=== PATIENT | male | born 1955 | race Caucasian/White ===

== ENCOUNTER → 2021-10-01 | Day surgery (SDC) | payer BC ==
[2021-10-01 09:20] VITALS: BP 127/86
== END | disposition home or self-care (01) ==
LOC: OR 06:56
PROVIDERS: ATTEND Surgery
DX: C20 Malignant neoplasm of rectum (principal); K63.5 Polyp of colon; K57.30 Diverticulosis of large intestine without perforation or abscess without bleeding; R00.1 Bradycardia, unspecified; F41.9 Anxiety disorder, unspecified; Z01.810 Encounter for preprocedural cardiovascular examination; Z01.812 Encounter for preprocedural laboratory examination; Z20.822 Contact with and (suspected) exposure to COVID-19
CPT/HCPCS: 45380; 45384; 88305; 93005; U0002; 45378